=== PATIENT | female | born 1990 | race Caucasian/White ===

== ENCOUNTER 2017-09-13 09:59 | Inpatient (IN) | payer OTHER ==
[~2017-09-13] VITALS: Ht 175.3 cm; Wt 84.0 kg
[2017-09-13] MEDS ORDERED: LIDOCAINE 1%, 20ML ONE (10:47)
[2017-09-13] MEDS ORDERED: MISOPROSTOL 200 MCG TABLET ONE (10:47)
[2017-09-13] MEDS ORDERED: OXYTOCIN 30U/ 0.9% NaCL 500ML 500 ML ONE ×2 (10:47→19:56)
[2017-09-13] MEDS ORDERED: FENTANYL PF 100 MCG/2ML IV PRN (11:00)
[2017-09-13] MEDS ORDERED: FENTANYL PF 100 MCG/2ML IVPush PRN (11:00)
[2017-09-13] MEDS ORDERED: OXYTOCIN 30U/ 0.9% NaCL 500ML 500 ML IV ONE (11:00)
[2017-09-13] MEDS ORDERED: ONDANSETRON 2MG/ML, 2ML IVPush PRN ×2 (11:00→17:30)
[2017-09-13] MEDS ORDERED: OXYTOCIN 30U/ 0.9% NaCL 500ML 500 ML IV PRN (11:00)
[2017-09-13] MEDS ORDERED: PLEASE ENTER ALLERGIES MC SCH ×2 (11:30)
[2017-09-13] MEDS ORDERED: PLEASE ENTER HEIGHT AND WEIGHT MC SCH (11:30)
[2017-09-13 11:46] LABS: HEMATOCRIT 40.7 % (34.6-47.8); HEMOGLOBIN 13.9 g/dL (11.7-16.4); WHITE BLOOD COUNT 10.3 x10^3/uL (3.4-10)
[2017-09-13 12:24] VITALS: BP 129/73
[2017-09-13] MEDS: LACTATED RINGERS 1,000 ML IV SCH ×3 (14:55→17:28)
[2017-09-13] MEDS ORDERED: PREN-3 PO (15:04)
[2017-09-13] MEDS ORDERED: BUPIVACAINE 0.25% ONE (15:43)
[2017-09-13] MEDS ORDERED: FENTANYL PF 100 MCG/2ML ONE (15:43)
[2017-09-13] MEDS ORDERED: FENTANYL/BUPIV./NS/PF 250 ML EPIDCONT ONE (15:44)
[2017-09-13] MEDS ORDERED: LIDOCAINE/PF 1.5%-EPI 1:200K, 30ML ONE (15:45)
[2017-09-13] MEDS ORDERED: TERBUTALINE 1 MG/ML, 1ML ONE (17:15)
[2017-09-13] MEDS ORDERED: EPHEDRINE 50 MG/ML, 1ML ONE (17:22)
[2017-09-13] MEDS ORDERED: LACTATED RINGERS 1,000 ML IV SCH (17:25)
[2017-09-13] MEDS ORDERED: FENTANYL/BUPIV./NS/PF 250 ML EPIDCONT SCH (17:25)
[2017-09-13] MEDS ORDERED: EPHEDRINE 50 MG/ML, 1ML IVPush PRN (17:30)
[2017-09-13] MEDS ORDERED: LACTATED RINGERS 1,000 ML IVBOLUS PRN (17:30)
[2017-09-13] MEDS ORDERED: SODIUM CITRATE/CITRIC ACID 30 ML UDC PO PRN (18:00)
[2017-09-13] MEDS ORDERED: TERBUTALINE 1 MG/ML, 1ML IVPush PRN (18:00)
[2017-09-13] MEDS ORDERED: METOCLOPRAMIDE 5 MG/ML, 2ML IVPush PRN (18:00)
[2017-09-13] MEDS ORDERED: IBUPROFEN 600 MG TABLET ONE (19:56)
[2017-09-13] MEDS: IBUPROFEN 600 MG TABLET PO PRN (19:58)
[2017-09-13] MEDS: OXYTOCIN 30U/ 0.9% NaCL 500ML 500 ML IV SCH (19:59)
[2017-09-13] MEDS ORDERED: HYDROcodone/APAP 5/325 TABLET PO PRN ×2 (20:00)
[2017-09-13] MEDS ORDERED: MISOPROSTOL 200 MCG TABLET PR PRN (20:00)
[2017-09-13] MEDS ORDERED: DOCUSATE 100 MG CAPSULE PO PRN (20:00)
[2017-09-13] MEDS ORDERED: ACETAMINOPHEN 325 MG TABLET PO PRN ×2 (20:00)
[2017-09-13 21:15] VITALS: BP 106/61
[2017-09-13 23:50] VITALS: BP 106/68
[2017-09-14] MEDS: IBUPROFEN 600 MG TABLET PO PRN ×3 (03:53→17:35)
[2017-09-14 04:00] VITALS: BP 108/67
[2017-09-14 05:22] LABS: HEMATOCRIT 35.4 % (34.6-47.8); HEMOGLOBIN 12.2 g/dL (11.7-16.4); WHITE BLOOD COUNT 12.1 x10^3/uL (3.4-10)
[2017-09-14] MEDS: OXYTOCIN 30U/ 0.9% NaCL 500ML 500 ML IV SCH (05:49)
[2017-09-14 08:10] VITALS: BP 115/77
[2017-09-14] MEDS: PRENATAL VIT/IRON/FA 1 EACH TABLET PO SCH (09:00)
[2017-09-14 13:30] VITALS: BP 113/75
[2017-09-14] MEDS ORDERED: HYDR-3240 PO (14:27)
[2017-09-14] MEDS ORDERED: SENN-1 PO (14:27)
[2017-09-14] MEDS ORDERED: IBUP-1222 PO (14:27)
== END 2017-09-14 19:15 | disposition home or self-care (01) | DRG 775 ==
LOC: LDOP 09:59 → LDIP 10:54 → 2NW 21:28
PROVIDERS: ADMIT Obstetrics & Gynecology; ATTEND Obstetrics & Gynecology
PROC: 0KQM0ZZ Repair Perineum Muscle, Open Approach (ICD-10-PCS; principal; 2017-09-13)
PROC: 10E0XZZ Delivery of Products of Conception, External Approach (ICD-10-PCS; 2017-09-13)
PROC: 3E0R3BZ Introduction of Anesthetic Agent into Spinal Canal, Percutaneous Approach (ICD-10-PCS; 2017-09-13)
PROC: 00HU33Z Insertion of Infusion Device into Spinal Canal, Percutaneous Approach (ICD-10-PCS; 2017-09-13)
DX: O69.81X0 Labor and delivery complicated by cord around neck, without compression, not applicable or unspecified (principal); O70.1 Second degree perineal laceration during delivery; Z37.0 Single live birth; Z3A.39 39 weeks gestation of pregnancy
CPT/HCPCS: 36415; 85025; 86850; 86900; J2405; J3490; J2590; J3010; J3105; J7120